=== PATIENT | female | born 1960 | race Caucasian/White ===

== ENCOUNTER 2016-06-06 16:55 | Emergency (ER) | payer OTHER ==
[~2016-06-06] VITALS: Ht 160 cm; Wt 63.5 kg
[2016-06-06 17:33] VITALS: BP 150/94
--- NOTE | 2016-06-06 17:50 | NUR ---
56 F BIB FAMILY C/O FACIAL REDNESS, SWELLING, PAIN, ITCHING D/T USED HAIR DYE 3 WEEKS AGO;PT DENIES N/V/D; SKIN IS PINK/WARM/DRY; AAOX4 WITH EVEN AND STEADY GAIT; LUNGS CLEAR BL; HR EVEN AND REGULAR; PT DENIES ANY FEVER, CP, SOB, OR COUGH AT THIS TIME; PATIENT STATES PAIN OF 10/10 AT THIS TIME; PATIENT POSITIONED FOR COMFORT; HOB ELEVATED; BEDRAILS UP X2; BED DOWN. ER MD MADE AWARE OF PT STATUS.
--- NOTE | 2016-06-06 18:21 | NUR ---
PT AMBULATED TO ER BED 05.
[2016-06-06 18:25] VITALS: BP 130/80
== END 2016-06-06 18:25 | disposition home or self-care (01) ==
LOC: MED 16:55
DX: T20.512A Corrosion of first degree of left ear [any part, except ear drum], initial encounter (principal); L03.211 Cellulitis of face; R03.0 Elevated blood-pressure reading, without diagnosis of hypertension; Y93.89 Activity, other specified; Y92.89 Other specified places as the place of occurrence of the external cause; Y99.8 Other external cause status

== ENCOUNTER 2017-04-29 14:53 | Emergency (ER) | payer OTHER ==
--- NOTE | 2017-04-29 15:32 | NUR ---
PATIENT LEFT WITHOUT BEING SEEN BY DR. MNCAIR. NO FURTHER CARE PROVIDED FOR PATIENT.
== END 2017-04-29 15:32 | disposition left against medical advice (07) ==
LOC: MED 14:53
DX: H92.09 Otalgia, unspecified ear (principal); Z53.21 Procedure and treatment not carried out due to patient leaving prior to being seen by health care provider